=== PATIENT | female | born 1965 | race Hispanic/Latino ===

== ENCOUNTER 2017-02-20 01:54 | Emergency (ER) | payer OTHER ==
[2017-02-20 01:57] VITALS: BMI 29.2
[2017-02-20 01:59] VITALS: TEMP 97.6
[2017-02-20] MEDS ORDERED: Sodium Chloride 0.9% 1,000 ML IV STA (02:10)
--- NOTE | 2017-02-20 02:10 | ED PDOC ---
Arrival/HPI - General Chief Complaint: Abdominal Pain Time Seen by Provider: 02/20/17 01:59 Historian: Patient - History of Present Illness Narrative History of Present Illness (Text): 02/20/17 02:08 Monisha Luciano is a 51 year old female, with no significant past medical history, who presents to the emergency department complaining of abdominal cramping, nausea, vomiting, and diarrhea for 2 hours after eating salmon at a restaurant tonight. The patient denies any fever, chills, chest pain, shortness of breath, urinary symptoms, back pain, neck pain, headache, dizziness, or any other complaints. Time/Duration: 1-3 hours (00:00) Symptom Onset: Gradual Symptom Course: Unchanged Quality: Cramping Activities at Onset: Light, Eating Past Medical History - Provider Review Nursing Documentation Reviewed: Yes - Reproductive Menopause: Yes - Psychiatric Hx Substance Use: No Family/Social History - Physician Review Nursing Documentation Reviewed: Yes Family/Social History: No Known Family HX Smoking Status: Never Smoked Hx Alcohol Use: Yes Frequency of alcohol use: Socially Hx Substance Use: No Allergies/Home Meds Allergies/Adverse Reactions: Allergies sulfamethoxazole [From Bactrim] Allergy (Verified 02/20/17 01:57) RASH trimethoprim [From Bactrim] Allergy (Verified 02/20/17 01:57) RASH Review of Systems - Physician Review All systems were reviewed & negative as marked: Yes - Review of Systems Constitutional: Normal. absent: Fevers Eyes: Normal ENT: Normal Respiratory: Normal. absent: SOB, Cough Cardiovascular: Normal. absent: Chest Pain Gastrointestinal: Abdominal Pain, Diarrhea, Nausea, Vomiting Genitourinary Female: Normal. absent: Dysuria, Frequency, Hematuria, Urine Output Changes Musculoskeletal: Normal. absent: Back Pain, Neck Pain Skin: Normal. absent: Rash Neurological: Normal. absent: Headache, Dizziness Endocrine: Normal Hemo/Lymphatic: Normal Psychiatric: Normal Physical Exam Vital Signs Reviewed: Yes Vital Signs Temp Pulse Resp BP Pulse Ox 02/20/17 04:25 82 18 105/69 100 02/20/17 03:29 85 16 122/76 100 02/20/17 01:58 97.6 F 70 16 144/75 99 Temperature: Afebrile Blood Pressure: Normal Pulse: Regular Respiratory Rate: Normal Appearance: Positive for: Well-Appearing, Non-Toxic, Comfortable Pain Distress: None Mental Status: Positive for: Alert and Oriented X 3 - Systems Exam Head: Present: Atraumatic, Normocephalic Pupils: Present: PERRL Extroacular Muscles: Present: EOMI Conjunctiva: Present: Normal Mouth: Present: Moist Mucous Membranes Neck: Present: Normal Range of Motion Respiratory/Chest: Present: Clear to Auscultation, Good Air Exchange. No: Respiratory Distress, Accessory Muscle Use Cardiovascular: Present: Regular Rate and Rhythm, Normal S1, S2. No: Murmurs Abdomen: Present: Normal Bowel Sounds. No: Tenderness, Distention, Peritoneal Signs Back: Present: Normal Inspection Upper Extremity: Present: Normal Inspection. No: Cyanosis, Edema Lower Extremity: Present: Normal Inspection. No: Edema Neurological: Present: GCS=15, CN II-XII Intact, Speech Normal Skin: Present: Warm, Dry, Normal Color. No: Rashes Psychiatric: Present: Alert, Oriented x 3, Normal Insight, Normal Concentration Medical Decision Making ED Course and Treatment: 02/20/17 02:08 Impression: 51 year old female complaining of abdominal cramping, nausea, vomiting, and diarrhea for 2 hours after eating. Differential Diagnosis included but are not limited to: gastroenteritis Plan: -- Labs, lipase -- IV fluids -- Zofran -- Pepcid -- Toradol -- Reassess and disposition Progress Notes: On reevaluation the patient states she feels completely better and is in no acute distress. Abdomen soft, non-tender. I have discussed the results and plan with the patient, who expresses understanding. Patient given the opportunity to ask question, all questions were answered and there is agreement with the plan to discharge the patient home. Patient is stable for discharge. Patient was instructed to follow up with physician/clinic in 1-2 days or return if symptoms persist/worsen or new concerning symptoms arise. - Lab Interpretations Lab Results: 02/20/17 02:30 02/20/17 02:30 Lab Results 02/20/17 02:30: WBC 8.3, RBC 5.68, Hgb 16.0, Hct 46.0, MCV 81.0, MCH 28.2, MCHC 34.8, RDW 14.1, Plt Count 213, MPV 10.5 02/20/17 02:30: Sodium 138, Potassium 4.7, Chloride 102, Carbon Dioxide 28, Anion Gap 13, BUN 21, Creatinine 0.8, Est GFR ( Amer) > 60, Est GFR (Non- Af Amer) > 60, Random Glucose 118 H, Calcium 8.8, Total Bilirubin 0.7, AST 26, ALT 29, Alkaline Phosphatase 78, Total Protein 6.9, Albumin 3.9, Globulin 3.0, Albumin/Globulin Ratio 1.3, Lipase 105 I have reviewed the lab results: Yes Interpretation: No clinic. lab abnormalty - Medication Orders Current Medication Orders: Discontinued Medications Famotidine (Pepcid) 20 mg IVP STAT STA Stop: 02/20/17 02:11 Last Admin: 02/20/17 02:44 Dose: 20 mg Sodium Chloride (Sodium Chloride 0.9%) 1,000 mls @ 999 mls/hr IV .Q1H1M STA Stop: 02/20/17 03:10 Last Admin: 02/20/17 02:44 Dose: 999 mls/hr Ketorolac Tromethamine (Toradol) 30 mg IVP ONCE ONE Stop: 02/20/17 02:11 Last Admin: 02/20/17 02:45 Dose: 30 mg Ondansetron HCl (Zofran Inj) 4 mg IVP ONCE ONE Stop: 02/20/17 02:11 Last Admin: 02/20/17 02:44 Dose: 4 mg - Amenaibe Statement The provider has reviewed the documentation as recorded by the Batsheva Temple Provider Attestation: All medical record entries made by the Batsheva were at my direction and personally dictated by me. I have reviewed the chart and agree that the record accurately reflects my personal performance of the history, physical exam, medical decision making, and the department course for this patient. I have also personally directed, reviewed, and agree with the discharge instructions and disposition. Disposition/Present on Arrival - Present on Arrival Any Indicators Present on Arrival: No History of DVT/PE: No History of Uncontrolled Diabetes: No Urinary Catheter: No History of Decub. Ulcer: No History Surgical Site Infection Following: None - Disposition Have Diagnosis and Disposition been Completed?: Yes Diagnosis: Gastroenteritis Disposition: HOME/ ROUTINE Disposition Time: 04:34 Patient Plan: Discharge Patient Problems: Current Active Problems Problem Status Onset Gastroenteritis Acute Condition: GOOD Discharge Instructions (ExitCare): Gastroenteritis (ED) Additional Instructions: Drink small amounts of liquids at a time/advance diet slowly as tolerated/ medication as prescribed/follow up with your doctor/any recurrent worsening symptoms return to the emergency room Prescriptions: Ondansetron [Zofran Odt] 4 mg PO Q6 PRN #10 odt PRN Reason: Nausea/Vomiting
[2017-02-20 02:46] LABS: MEAN CORPUSCULAR HEMOGLOBIN 28.2 pg (25.0-35.0); MEAN CORPUSCULAR HGB CONC 34.8 g/dl (31.0-37.0); MEAN PLATELET VOLUME 10.5 fl (7.0-11.0); RED CELL DISTRIBUTION WIDTH 14.1 % (11.5-14.5); WHITE BLOOD COUNT 8.3 10^3/ul (4.5-11.0)
[2017-02-20 03:22] LABS: ALB/GLOB RATIO 1.3 (1.1-1.8); ALKALINE PHOSPHATASE 78 U/L (38-133); ALT/SGPT 29 U/L (7-56); AST/SGOT 26 U/L (15-39); BILIRUBIN,TOTAL 0.7 mg/dL (0.2-1.3); BLOOD UREA NITROGEN 21 mg/dL (7-21); CALCIUM 8.8 mg/dL (8.4-10.5); CARBON DIOXIDE 28 mmol/L (21-33); CHLORIDE 102 mmol/L (98-107); GFR AFRICAN-AMERICAN > 60; GLUCOSE,RANDOM 118 mg/dL (70-110); LIPASE 105 U/L (23-300); POTASSIUM 4.7 mmol/L (3.6-5.0); SODIUM 138 mmol/L (132-148); TOTAL PROTEIN 6.9 g/dL (5.8-8.3)
[2017-02-20 03:43] VITALS: O2SAT 100
[2017-02-20 04:28] VITALS: BP 105/69; PULSE 82; RESP 18
== END 2017-02-20 04:41 | disposition home or self-care (01) ==
LOC: ED 01:54
DX: K52.9 Noninfective gastroenteritis and colitis, unspecified (principal)
CPT/HCPCS: 80053; 83690; 85027; 96374; 96375; 99284; J1885; J2405; J7040